=== PATIENT | male | born 1995 | race Caucasian/White ===

== ENCOUNTER 2019-06-04 16:28 | Emergency (ER) | payer OTHER ==
[~2019-06-04] VITALS: Ht 170.2 cm; Wt 91.8 kg
[2019-06-04 16:50] VITALS: BP 142/89
--- NOTE | 2019-06-04 16:59 | NUR ---
PT AMB TO BED 8
--- NOTE | 2019-06-04 17:15 | NUR ---
C/O STERNAL CHEST PAIN 7 AND SHARP X1 WEEK. PT DENIES INJURY, N/V/SOB. PT STATES THE PAIN IS EXACERBATED BY MOVEMENT & DEEP BREATHS. DENIES MEDICAL HISTORY. HR EVEN & REGULAR, NSR ON MONITOR, PT A& O X4, ANSWERING QUESTIONS APPROPRIATELY. PT DENIES STRESS OR ANXIETY. PT PROVIDED WITH GOWN & ON BEDSIDE HEAD CONCIERGE AT THIS TIME. SIDE RAIL UP X1, PT GIRLFRIEND AT BEDSIDE.
--- NOTE | 2019-06-04 17:30 | NUR ---
PT AMBULATED TO RESTROOM WITH EVEN/STEADY GAIT
--- NOTE | 2019-06-04 17:47 | NUR ---
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
[2019-06-04 18:51] VITALS: BP 142/89
== END 2019-06-04 18:52 | disposition home or self-care (01) ==
LOC: MED 16:28
DX: R07.89 Other chest pain (principal); I10 Essential (primary) hypertension
CPT/HCPCS: 71045; 93005; 99283; Q0092